=== PATIENT | male | born 2000 | race Caucasian/White ===

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

== ENCOUNTER 2019-02-03 02:00 | Emergency (ER) | payer OTHER, MEDICAID ==
[2019-02-03] MEDS ORDERED: Albuterol 0.5% CONC NEB.SOL* 5 MG/ML 20 ml BOT INH ONE (02:13)
[2019-02-03] MEDS ORDERED: predniSONE TAB* 20 MG PO ONE (02:13)
--- NOTE | 2019-02-03 02:17 | ED ---
Shortness of Breath - HPI Summary HPI Summary: This patient is a 18 year old M presenting to ED with a chief complaint of SOB since three days ago. Patient reports difficulty sleeping and having decreased lung capacity. Patient reports dry cough. He has been hospitalized for his asthma before when he was at a very [place] store. His asthma has been doing better until he began smoking marijuana in high school. When patient has allergies, he will use Albuterol about once a week. At other times, he will use it intermittently, but usually cannot last a week without using it. The patient rates the pain 0/10 in severity. Symptoms aggravated by nothing. Symptoms alleviated by nothing. Patient reports dry cough. Patient denies SI, HI, sore throat, rhinorrhea. PMHx of PNA, asthma. Denies PSHx. Denies FHx. Patient does not drink alcohol uses marijuana, THC oil cartridges, but no tobacco. - History of Current Complaint Chief Complaint: EDShortnessOfBreath Time Seen by Provider: 02/03/19 02:00 Hx Obtained From: Patient Onset/Duration: Gradual Onset, Lasting Days - 3 days ago, Still Present Aggrevating Factors: Nothing Alleviating Factors: Nothing Associated Signs & Symptoms: Cough (Nonproductive) - Allergy/Home Medications Allergies/Adverse Reactions: Allergies Allergy/AdvReac Type Severity Reaction Status Date / Time sesame seed Allergy Vomiting Verified 02/03/19 02:05 Home Medications: Home Medications Albuterol HFA INHALER* [Ventolin HFA Inhaler*] 2 puff INH Q4H PRN 02/03/19 [ History Confirmed 02/03/19] PMH/Surg Hx/FS Hx/Imm Hx Endocrine/Hematology History: Denies: Hx Diabetes Cardiovascular History: Denies: Hx Hypertension Respiratory History: Reports: Hx Asthma, Hx Pneumonia - Surgical History Surgery Procedure, Year, and Place: none Infectious Disease History: No Infectious Disease History: Denies: Traveled Outside the [place] in Last 30 Days - Family History Known Family History: Positive: None - Social History Alcohol Use: None Hx Substance Use: Yes Substance Use Type: Reports: Marijuana Hx Tobacco Use: No Smoking Status (MU): Never Smoked Tobacco Review of Systems ENT: Negative - Rhinorrhea Negative: Sore Throat Positive: Shortness Of Breath, Cough - Dry Psychological: Other - SI/HI All Other Systems Reviewed And Are Negative: Yes Physical Exam - Summary Physical Exam Summary: Appearance: Well-appearing, Well-nourished, lying in bed comfortable, no respiratory distress Skin: Warm, dry, no obvious rash Eyes: sclera anicteric, no conjunctival pallor ENT: mucous membranes moist Neck: deferred Respiratory: diffuse expiratory wheezes Cardiovascular: Appears well perfused, pulses are nml Abdomen: deferred Musculoskeletal: Moving all 4 extremities without obvious discomfort Neurological: Awake and alert, mentation is normal, speech is fluent and appropriate Psychiatric: affect is normal, does not appear anxious or depressed Triage Information Reviewed: Yes Vital Signs On Initial Exam: Initial Vitals Temp Pulse Resp BP Pulse Ox 98.1 F 88 20 151/109 96 02/03/19 02:03 02/03/19 02:03 02/03/19 02:03 02/03/19 02:03 02/03/19 02:03 Vital Signs Reviewed: Yes Diagnostics - Vital Signs Vital Signs Temp Pulse Resp BP Pulse Ox 02/03/19 02:03 98.1 F 88 20 151/109 96 - Laboratory Lab Statement: Any lab studies that have been ordered have been reviewed, and results considered in the medical decision making process. Re-Evaluation - Re-Evaluation First Eval Re-Evaluation Time: 03:32 Change: Improved Comment: Patient reports feeling better after treatment. He no longer has wheezing. Patient will be discharged home with dx of asthma exacerbation. Patient understands and agrees with this plan. Course/Dx - Course Course Of Treatment: This patient is a 18 year old M presenting to ED with a chief complaint of SOB since three days ago. In the ED course, patient received Albuterol and Deltasone. With treatment, patient reports feeling better and no longer has wheezing. Patient will be discharged home with dx of asthma exacerbation. Patient understands and agrees with this plan. - Diagnoses Provider Diagnoses: Asthma exacerbation Discharge - Sign-Out/Discharge Documenting (check all that apply): Patient Departure - Discharge Patient Received Moderate/Deep Sedation with Procedure: No - Discharge Plan Condition: Good Disposition: HOME Prescriptions: Albuterol HFA INHALER* [Ventolin HFA Inhaler*] 1 - 2 puff INH Q6H PRN #1 mdi PRN Reason: Wheezing Budesonide Flexhaler 90 (NF) [Pulmicort Flexhaler 90 mcg/act (NF)] 2 puff INH BID #1 mdi predniSONE TAB* [Deltasone 20 MG TAB*] 40 mg PO DAILY 4 Days #8 tab Patient Education Materials: Asthma (ED) [facility] - Additional Instructions: Start the pulmicort inhaler twice a day tomorrow. Remember to rinse your mouth out after using it. Let me know how you're doing in a couple of days. Keep the house in good shape over the summer! -alissa- - Billing Disposition and Condition Condition: GOOD Disposition: Home - Attestation Statements Document Initiated by Gabe: Yes Documenting Scribe: Alberto Tobar Provider For Whom Gabe is Documenting (Include Credential): José Miguel Anthony MD Scribe Attestation: I, dolores Menendezibed for José Miguel Anthony MD on 02/03/19 at 0422. Scribe Documentation Reviewed: Yes Provider Attestation: The documentation as recorded by the Alberto dang accurately reflects the service I personally performed and the decisions made by me, José Miguel Anthony MD Status of Scribe Document: Viewed
[2019-02-03 03:41] VITALS: BP 112/86
== END 2019-02-03 03:41 | disposition home or self-care (01) ==
LOC: ED 02:00
DX: J45.901 Unspecified asthma with (acute) exacerbation (principal); R05 Cough; R06.02 Shortness of breath
CPT/HCPCS: 99282; J7512; J7611